=== PATIENT | female | born 1950 | race Caucasian/White ===

== ENCOUNTER 2017-04-03 13:25 | Observation (INO) ==
[2017-04-03] MEDS ORDERED: NITROGLYCERIN SL 0.4 MG TABLET SL PRN (13:54)
[2017-04-03] MEDS ORDERED: ASPIRIN 325 MG TABLET PO STA (13:54)
[2017-04-03] MEDS ORDERED: PANTOPRAZOLE 40 MG VIAL IV STA (13:55)
--- NOTE | 2017-04-03 14:08 | Emergency Department Note ---
Blane Kern Gwan, am scribing for, and in the presence of, Carlos Soto MD 13:59 . Brittany Kern James D, MD, personally performed the services described in this documentation, ascribed by Jordan Arguelles in my presence, and it is both accurate and complete . Arrival - Arrival Chief Complaint: Chest Pain Stated Complaint: shortness of breath ED Nursing Triage Note: Brought in per EMS from home with c/o mid-sternal chest pain onset 1230pm. Describes as pressure. +shortness of breath. +generalized weakness. Denies nausea. Reports had upper GI scope yesterday by Dr Romero. Mode of Arrival: Stretcher Limitations: No Limitations Source: Patient, Old Records Reviewed, RN Notes Reviewed - History of Present Illness HPI Narrative: Patient is a 66 y/o female who presents to the ED via EMS for further evaluation of mid-sternal chest pain with an onset 1230 today. Patient describes her discomfort as pressure and that she also has SOB and generalized weakness. She confirmed that Dr. Romero performed a GI scope on her yesterday and that she had no problems/complaints afterwards. She then noted that 45 minutes PREHEMMER she began to have sxs marko also included the feeling of near syncope. This prompted her to call EMS. She is followed by Dr. Arlen Aguila. Onset (ago): hour(s) Consistency: constant Severity: moderate Date of Last Menstrual Period: PM Allergies/Adverse Reactions: Allergies Allergy/AdvReac Type Severity Reaction Status Date / Time Cefaclor [From Ceclor] Allergy RASH Verified 04/03/17 13:35 fluphenazine [From Prolixin] Allergy Cramping Verified 04/03/17 13:35 of the Muscles Home Medications: Home Medications Medication Instructions Recorded Confirmed Type Fluticasone Propionate 1 spray BOTH NARES BID 03/05/17 04/03/17 History [Fluticasone 50 mcg Nasal [place]] Montelukast Tab [Singulair Tab] 10 mg PO BEDTIME PRN 03/05/17 04/03/17 History Pilocarpine Tab [Salagen] 5 mg PO TID PRN 03/05/17 04/03/17 History cycloSPORINE OPH EMUL [Restasis] 1 drop BOTH EYES DAILY 03/05/17 04/03/17 History Albuterol Neb [Proventil Neb] 2.5 mg RESP TX TID 04/03/17 04/03/17 History Review of System - Review of System 12 point system: reviewed and no additional remarkable complaints except as stated - Review of System Constitutional: Present: as per HPI, weakness. Absent: chills, fever Eyes: Absent: discharge Head/Ears/Nose/Throat: Absent: earache Respiratory: Present: as per HPI, other (sob). Absent: cough Cardiovascular: Present: as per HPI, chest pain Gastrointestinal: Absent: abdominal pain, nausea, vomiting Genitourinary female: Absent: dysuria Musculoskeletal: Absent: arm pain, back pain, leg pain, neck pain Medical,Surgical,& Family Hx - Medical History Respiratory: History of: Asthma Gastrointestinal: History of: GI Problems ("Indigestion") Other: History of: Miscellaneous Medical Problems (DRY MOUTH, ALLERGIES) - Social History Smoking Status: Never smoker Frequency of Alcohol Use: None Type of Drug Use: None Exam Physical Examination: GENERAL: This is a well-nourished, well-developed white female in no apparent distress. VITAL SIGNS: HEENT: Head is normocephalic and atraumatic. Pupils are equally round and reactive to light. Extraocular movement are intact. Oropharynx is benign with moist mucous membranes. NECK: Neck is soft and supple without tenderness. There are no masses. There is no lymphadenopathy. LUNGS: Lungs are clear to auscultation bilaterally. Chest rises symmetrically. There is no chest wall tenderness. CV: Heart is regular rate and rhythm without murmurs, rubs, or gallops. ABDOMEN: Abdomen is soft, non-tender to palpation. There are no abnormal masses palpated. There is no organomegaly. Bowel sounds are present and active. SKIN: Skin is warm and dry. No rash. EXTREMITIES: Patient has full range of motion without tenderness. There is no pedal edema. NEUROLOGIC: Awake, alert, and oriented x4. Cranial nerves II through XII are grossly intact. There are no motorsensory deficits. PSYCHIATRIC: Normal affect. Normal mood. Vital Signs: Vital Signs Temperature 97.2 F L 04/03/17 13:25 Pulse Rate 88 04/03/17 13:25 Respiratory Rate 18 04/03/17 13:25 Blood Pressure 151/89 04/03/17 13:25 O2 Sat by Pulse Oximetry 97 04/03/17 13:25 Results - Labs CBC & BMP: 04/03/17 14:16 04/03/17 14:16 Lab Results: I have reviewed the patients labs Labs: EKG: Normal sinus rhythm with a rate of 87, nonspecific ST-T wave changes, normal axis. - EKG EKG results: interpreted by ERMD - Impressions EKG: Normal sinus rhythm with a rate of 87, nonspecific ST-T wave changes, normal axis. - Diagnostic Findings Procedure: Chest x-ray: image reviewed by me (No cardiomegaly, no pleural effusions.) Disposition Clinical Impression: Chest pain Case discussed with: patient Disposition: Still a Patient Condition: Stable
--- NOTE | 2017-04-03 14:22 | XRay Report ---
Exam: XR chest 2V Date: 04/03/2017 1:55 PM Indication: Chest pain Comparison: 03/05/2017 Technical: PA lateral Findings: No obvious infiltrate or effusion. Small granuloma present in the left mid chest. No obvious infiltrate or effusion. Mediastinum is otherwise intact. Heart is normal in size. Impression: 1. Degenerative spondylosis change thoracic spine 2. No acute cortical pathology with small granuloma left midlung zone PROCEDURE INTERPRETED AT [facility] DEPARTMENT OF RADIOLOGY Final Report Signed by: Dr. Jaleel Padilla
[2017-04-03] MEDS ORDERED: PANTOPRAZOLE 40 MG VIAL IV ONE (14:25)
[2017-04-03 14:26] LABS: Basophils # 0.1 10*3/uL (0.0-0.2); Basophils % 1.1 % (0.0-0.8); Eosinophils # 0.3 10*3/uL (0.0-0.87); Eosinophils % 6.6 % (0.00-10.9); Hematocrit 37.3 VOL% (35.7-47.0); Hemoglobin 12.7 GM/DL (12.0-16.0); Immature Granulocytes % 0.2 %; Immature Granulocytes Absolute 0.01 #; Lymphocytes # 1.7 10*3/uL (1.4-4.0); Mean Corpuscular Hemoglobin 29 PG (27-34); Mean Corpuscular Volume 85.4 FL (87-102); Mean Platelet Volume 9.9 FL (9.6-12.0); Monocytes # 0.3 10*3/uL (0.11-0.8); Monocytes % 7.4 % (1.7-12.7); Neutrophils # 2.2 10*3/uL (1.4-7.4); Neutrophils % 48.7 % (38.7-73.9); Platelet Count 218 T/CUMM (130-400); Red Blood Count 4.37 MC/CUMM (3.8-5.5); Red Cell Distribution Width 12.5 % (9.3-17.3); White Blood Count 4.6 T/CUMM (4-12)
[2017-04-03] MEDS ORDERED: ASPIRIN 325 MG TABLET ONE (14:26)
[2017-04-03] MEDS ORDERED: ACETAMINOPHEN 325 MG TABLET PO ONE (14:36)
[2017-04-03 14:38] LABS: Partial Thromboplastin Time 24.9 SECS (0-40)
[2017-04-03] MEDS ORDERED: ACETAMINOPHEN 325 MG TABLET ONE (14:38)
[2017-04-03 14:47] LABS: Albumin 3.9 G/DL (3.4-5.0); Bilirubin,Total 0.4 MG/DL (0.2-1.0); Calcium 8.8 MG/DL (8.5-10.1); Potassium 3.8 MMOL/L (3.5-5.1)
[2017-04-03] MEDS ORDERED: ONDANSETRON 4 MG/2 ML VIAL IV PRN (17:11)
[2017-04-03] MEDS ORDERED: ACETAMINOPHEN 325 MG TABLET PO PRN (17:11)
[2017-04-03] MEDS ORDERED: ENOXAPARIN 80 MG/0.8 ML SYRINGE SUBCUT STA (17:11)
[2017-04-03] MEDS: SODIUM CHLORIDE 0.9% 1,000 ML IV SCH (17:34)
--- NOTE | 2017-04-03 18:47 | Internal Med History&Physical ---
Assessment and Plan (1) Hypertension Status: Chronic Current Visit: Yes Qualifiers: Hypertension type: essential hypertension Qualified Code(s): I10 - Essential (primary) hypertension (2) Shortness of breath Status: Acute Current Visit: Yes (3) Chest heaviness Status: Acute Current Visit: Yes (4) Chest pain Status: Acute Current Visit: Yes Qualifiers: Chest pain type: unspecified Qualified Code(s): R07.9 - Chest pain, unspecified History of Present Illness Chief complaint: "can't get a breath" History of present illness: Ms. Quarles is a 66 year old female with history of UTI, acid reflux, who presented to ER with shortness of breath. Thought to have asthma but has not been properly diagnosed. Will order pulmonary function testing. She describes a chest heaviness and tightness, shortness of breath. Oxygen sats are so good, held off on ordering breathing treatments. She is concerned about side effects of albuterol and atrovent. Home Medications Medication Instructions Recorded Confirmed Type Fluticasone Propionate 1 spray BOTH NARES BID 03/05/17 04/03/17 History [Fluticasone 50 mcg Nasal [place]] Montelukast Tab [Singulair Tab] 10 mg PO BEDTIME PRN 03/05/17 04/03/17 History Pilocarpine Tab [Salagen] 5 mg PO TID PRN 03/05/17 04/03/17 History cycloSPORINE OPH EMUL [Restasis] 1 drop BOTH EYES DAILY 03/05/17 04/03/17 History Albuterol Neb [Proventil Neb] 2.5 mg RESP TX TID 04/03/17 04/03/17 History Allergies Allergy/AdvReac Type Severity Reaction Status Date / Time Cefaclor [From Ceclor] Allergy RASH Verified 04/03/17 13:35 fluphenazine [From Prolixin] Allergy Cramping Verified 04/03/17 13:35 of the Muscles Medical,Surgical,& Family Hx - Medical History Cardio: History of: Hypertension Respiratory: History of: Asthma (question of) Gastrointestinal: History of: GI Problems ("Indigestion", loose/small frequent bms) Musculoskeletal: History of: Musculoskeletal Problems (osteoarthritis) Other: History of: Miscellaneous Medical Problems (DRY MOUTH, ALLERGIES) - Surgical History HEENT Surgeries: Surgical HX of: Tonsilectomy & Adenoidectomy Abdominal Surgeries: Surgical HX of: Appendectomy Reproductive Surgeries: Surgical HX of;: Section Orthopedic Surgeries: Surgical HX of;: Orthopedic Surgery (right wrist pinned) - Family History Family History: Reports;: Family Cancer (mother - esophageal), Family Heart Disease (father - mi) Denies;: Family Anesthesia Reaction, Family Diabetes, Family Hematology, Family Hypertension, Family Psychiatric Problems, Family Stroke (great grandfather) - Social History Smoking Status: Never smoker Frequency of Alcohol Use: None Type of Drug Use: None Marital Status: Lives With:: Children Functional capacity: independent ambulation - Constitutional Constitutional: Present: weakness - Cardiovascular Cardiovascular: Present: chest pain at rest - Respiratory Respiratory: Present: dyspnea on exertion Exam - Constitutional Vitals: Period Temp Pulse Resp BP Sys/[place] Pulse Ox Last 24 Hr 98.0 F 66-73 15-20 104-123/57-74 97-99 General appearance: no acute distress - Head Head exam: Present: normocephalic - Eye Eye exam: Present: EOMI - Respiratory Respiratory exam: Present: clear to auscultation bilaterally - Cardiovascular Cardiovascular exam: Present: regular rate and rhythm - GI/Abdominal GI/Abdominal exam: Present: normal bowel sounds, soft. Absent: tenderness - Extremities Exam Extremities exam: Absent: edema - Neurological Exam Neurological exam: Present: alert, oriented X3 - Psychiatric Psychiatric exam: Present: normal affect, normal mood - Skin Skin exam: Present: warm, dry Results - Labs CBC & BMP: 04/03/17 14:16 04/03/17 14:16 - EKG EKG shows: sinus rhythm - Diagnostic Findings Procedure: Chest x-ray: report reviewed by me
[2017-04-03] MEDS: DOCUSATE SODIUM 100 MG CAPSULE PO SCH (22:16)
--- NOTE | 2017-04-03 22:30 | EKG Report ---
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
[2017-04-04] MEDS: SODIUM CHLORIDE 0.9% 1,000 ML IV SCH ×2 (01:37→08:56)
[2017-04-04 05:28] LABS: Calcium 8.2 MG/DL (8.5-10.1); Magnesium 2.1 MG/DL (1.8-2.4); Osmolality,Calculated 286.6 MOS/KG (273-304); Potassium 3.7 MMOL/L (3.5-5.1)
--- NOTE | 2017-04-04 06:25 | EKG Report ---
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
--- NOTE | 2017-04-04 06:26 | EKG Report ---
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
--- NOTE | 2017-04-04 07:58 | EKG Report ---
Stationary ECG Study [facility] ER Test Date: 04/03/2017 1:33:11 PM Pat Name: DANA GIRON Department: Room: 294 Gender: F Gta: : 1950 Requested by: Carlos Trimble Order Number: [id number] Reading MD: SALVATORE MORRIS Intervals [place] Rate: 87 P: 59 WV: 153 QRS: 47 QRSD: 85 T: 7 QT: 364 QTc: 408 Interpretive Statements SINUS RHYTHM Electronically Signed On 04-04-17 17:13:45 CDT by SALVATORE MORRIS [id number]
[2017-04-04] MEDS: DOCUSATE SODIUM 100 MG CAPSULE PO SCH (08:55)
[2017-04-04] MEDS ORDERED: PANTOPRAZOLE 40 MG TABLET PO SCH (09:00)
--- NOTE | 2017-04-04 13:04 | Cardiology Consult Note ---
Aden Kern Vanessa RN, am scribing for, and in the presence of, Dada Bergeron MD 13:04. Assessment and Plan - Time spent with patient Time spent with patient: Greater than 30 minutes (due to assessment, planning, documentation, and medication review) (1) Chest pain Status: Acute Current Visit: Yes Qualifiers: Chest pain type: unspecified Qualified Code(s): R07.9 - Chest pain, unspecified (2) Shortness of breath Status: Acute Current Visit: Yes (3) Hypertension Status: Chronic Current Visit: Yes Qualifiers: Hypertension type: essential hypertension Qualified Code(s): I10 - Essential (primary) hypertension History of Present Illness - Data of Consult Patient: new to practice Consult date: 04/04/17 Requesting Physician: Agustin Ornelas Primary care physician: Agustin Ornelas - Consult Narrative Reason for consult: CP, SOB History of present illness: 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 ADRIANA BERGERON (NEW) PCP: DR. AGUSTIN ORNELAS CARDIOLOGY CONSULT NOTE: CHEST PAIN, SHORTNESS OF BREATH Ms. Quarles is a 66 year old white female who was never had formal cardiology evaluation. Past medical history includes seasonal allergies and asthma, indigestion/reflux, UTI. Family history: Father had sudden at age 59, and was felt to have suffered an [place]. Mother passed at age 64 related to complications of esophageal cancer; history of ASCVD. She presented to [place] 's ER on the afternoon of 04/03 with complaints of chest pressure, shortness of breath, generalized weakness. She reportedly had an outpatient upper GI endoscopy with esophageal dilation by Dr. Romero on 04/02 and was without complaint after. Yesterday afternoon, she had some chest pressure/epigastric discomfort, felt that she was near syncopal, and she called EMS. EKG revealed sinus rhythm without acute ischemic finding. Chest x-ray negative for cardiomegaly, infiltrate, effusion, or other cardiopulmonary process. Troponin level negative. Patient was admitted to telemetry per internal medicine for further observation and treatment. Cardiology has been consulted for evaluation. Patient seen and examined. She is sitting up in chair without acute distress noted. She has not experienced further discomfort, shortness of breath, dizziness, presyncope, or other symptoms since admission. When speaking with patient regarding chest and epigastric discomfort, she describes substernal "pressure" and epigastric "pressure". Patient describes this pressure as a "burp or belch that would not come up", and then she noticed that she was unable to take in a deep breath due to that feeling and then she felt that she was short of breath. No associated diaphoresis, nausea, vomiting. Admitted that this pressure made her feel weak and she did feel for a few minutes that she was going to pass out. She did not experience syncope. No recent or current exertional dyspnea, chest pain or discomfort, orthopnea, palpitations, PND. No aggravating or alleviating factors for her complaint. Reports she did receive sublingual nitroglycerin yesterday afternoon after arrival to the emergency room, and she feels that it helped "a little bit after a while". No recent cough, fever, chills. Patient reports she has experienced loose stools recently and has had some discomfort in her umbilical region. No hematuria, hematemesis, melena. Telemetry monitoring has revealed continuing sinus rhythm without disturbance, ectopy, or acute change. EKG this morning is nonspecific ST changes. Serial troponin levels have remained normal. Lab work is overall unremarkable. Electrolytes noted to be within acceptable range. Blood pressure 120/70. At this time, there are no clinical findings to suggest ACS. Patient can follow -up at [facility] clinic for outpatient stress testing and follow-up with Dr. Bergeron afterward. There are no features of the patient's symptoms that suggest angina as an etiology. Her evaluation is negative for evidence of ACS. I agree that this patient will be discharged to follow-up with us as an outpatient for noninvasive evaluation. Thank you very much for this consultation. CC: Agustin Ornelas, DO - Home Medications and Allergies Home Medications: Home Medications Medication Instructions Recorded Confirmed Type Fluticasone Propionate 1 spray BOTH NARES BID 03/05/17 04/03/17 History [Fluticasone 50 mcg Nasal [place]] Montelukast Tab [Singulair Tab] 10 mg PO BEDTIME PRN 03/05/17 04/03/17 History Piloc[place]ine Tab [Salagen] 5 mg PO TID PRN 03/05/17 04/03/17 History cycloSPORINE OPH EMUL [Restasis] 1 drop BOTH EYES DAILY 03/05/17 04/03/17 History Albuterol Neb [Proventil Neb] 2.5 mg RESP TX TID 04/03/17 04/03/17 History Allergies/Adverse Reactions: Allergies Allergy/AdvReac Type Severity Reaction Status Date / Time Cefaclor [From Ceclor] Allergy RASH Verified 04/03/17 13:35 fluphenazine [From Prolixin] Allergy Cramping Verified 04/03/17 13:35 of the Muscles - Constitutional Constitutional: Present: as per HPI - EENT Eyes: Present: as per HPI Nose, mouth and throat: Present: as per HPI - Cardiovascular Cardiovascular: Present: as per HPI - Respiratory Respiratory: Present: as per HPI - Gastrointestinal Gastrointestinal: Present: as per HPI - Genitourinary Genitourinary: Present: as per HPI - Musculoskeletal Musculoskeletal: Present: as per HPI - Neurological Neurological: Present: as per HPI - Psychiatric Psychiatric: Present: as per HPI - Endocrine Endocrine: Present: as per HPI - Hematologic/Lymphatic Hematologic/Lymphatic: Present: as per HPI Medical,Surgical,& Family Hx - Medical History Cardio: History of: Hypertension No history of: Cardiac Dysrhythmia, CHF, CAD, [place], PVD Psychological: No history of: Anxiety Disorders, Depression Neurology: No history of: Dementia, TIA Endocrine: No history of: Diabetes Mellitus (IDDM), Thyroid Disorder Respiratory: History of: Asthma (question of) No history of: COPD, Obstructive Sleep Apnea Genitourinary: History of: Recurring Urinary Tract Infections Gastrointestinal: History of: GERD, GI Problems (possible IBS) No history of: Gastrointestinal Bleed Musculoskeletal: History of: Musculoskeletal Problems (osteoarthritis) Hematology: No history of: Anemia Other: History of: Miscellaneous Medical Problems No history of: Cancer - Surgical History Cardiac Surgeries: Patient Denies: Cardiac Catheterization, Carotid Endarterectomy, Internal Defibrillator HEENT Surgeries: Surgical HX of: Tonsilectomy & Adenoidectomy Abdominal Surgeries: Surgical HX of: Appendectomy Reproductive Surgeries: Surgical HX of;: Section Orthopedic Surgeries: Surgical HX of;: Orthopedic Surgery (right wrist pinned) - Family History Family History: Reports;: Family Cancer (mother - esophageal), Family Heart Disease (father - mi) Denies;: Family Anesthesia Reaction, Family Diabetes, Family Hematology, Family Hypertension, Family Psychiatric Problems, Family Stroke (great grandfather) - Social History Smoking Status: Never smoker Frequency of Alcohol Use: None Type of Drug Use: None Physical Examination Vital Signs Temp Pulse Resp BP Pulse Ox 97.2 F L 88 18 155/89 97 04/03/17 13:25 04/03/17 13:25 04/03/17 13:25 04/03/17 13:25 04/03/17 13:25 General: Present: Appears Well, No Apparent Distress, Other (overweight) HEENT: Present: PERRL, Normocephaly, Mucus Membranes Moist. Absent: Jaundice, Oral Lesions Neck: Present: Supple Neck, Midline Trachea, No JVD/HJR, No Masses, No Bruit Cardiac: Present: Reg Rate and Rhythm, No Murmur Lungs: Present: Clear Ascult./Percussion, No Wheeze, Rales, Rhonchi. Absent: Oxygen Neuro: Present: Grossly Intact. Absent: Numbness, Tingling, Weakness, Resting Tremor, Essential Tremor Abdomen: Present: Soft, Active Bowel Sounds. Absent: Ascites, Tender, Firm Skin: Present: Clear. Absent: Rash, Suspicious Lesions Musculoskeletal: Present: No Fluid Collection, Normal Range of Motion Extremities: Present: No Clubbing, No Cyanosis, Normal Upper Extr. Pulses (3+ bilateral), Normal Lower Extr. Pulses (2+ bilateral), Edema (Trace pretibial), Capillary Refill (Normal) Result/EKG - Labs CBC & BMP: 04/03/17 14:16 04/04/17 04:30 Lab Results: I have reviewed the past 24 hour labs Labs: Laboratory Results - last 24 hr 04/03/17 04/03/17 04/04/17 17:43 21:36 04:30 Sodium 146 H Potassium 3.7 Chloride 110 H Carbon Dioxide 27 Anion Gap 12.7 BUN 7 Creatinine 0.60 GFR Calculation 93 BUN/Creatinine Ratio 11.00 Glucose 89 Calculated Osmolality 286.6 Calcium 8.2 L Magnesium 2.1 Troponin I < 0.015 < 0.015 - Diagnostic Findings Procedure: Chest x-ray: image reviewed by me, report reviewed by me - EKG EKG results: interpreted by me, no acute changes EKG shows: sinus rhythm Specialty Discharge - Follow Up or Referrals Follow up with: Dada Bergeron MD [Physician] - 1 Week (Please set up for outpatient stress testing at [facility] clinic and then follow up appointment with Dr. Bergeron after stress test.) IRubio Wesley, MD, personally performed the services described in this documentation, ascribed by Aracelis Samaniego RN in my presence, and it is both accurate and complete [id number] .
[2017-04-04] MEDS ORDERED: cycloSPORINE OPH EMUL 1 VIAL BOTH EYES SCH (14:08)
[2017-04-04 15:37] VITALS: BP 127/76
--- NOTE | 2017-04-04 17:27 | Discharge Summary ---
Hospital Course - Hospital Course Hospital Course: Ms. Quarles is a 66 year old female with history of UTI, acid reflux, who presented to ER with shortness of breath. Thought to have asthma but has not been diagnosed. Will order pulmonary function testing. She describes a chest heaviness and tightness, shortness of breath. Oxygen sats are so good, held off on ordering breathing treatments. She is concerned about side effects of albuterol and atrovent. She is feeling better after EGD a couple days ago outpatient with dilatation per Dr. Romero. Pulmonary function testing report pending. Will discharge her to home, and she will follow up with cardiology for cardiac stress testing and ECHO. Diagnosis - Discharge Diagnosis (1) Hypertension Status: Chronic (2) Shortness of breath Status: Resolved (3) Chest heaviness Status: Resolved (4) Chest pain Status: Resolved (5) Acid reflux Status: Chronic (6) Esophageal stricture Status: Chronic Specialty Discharge - Follow Up or Referrals Follow up with: Dada Bergeron MD [Physician] - 1 Week (Please set up for outpatient stress testing at [facility] and then follow up appointment with Dr. Bergeron after stress test.) Discharge Plan - Discharge Data Disposition: Disch To Home/Self Care Condition at Discharge: Stable Discharge Diet: low fat, low cholesterol Activity: increase activity as tolerated - Discharge Medications New Acetaminophen Tab [Tylenol Tab] 650 mg PO Q6H PRN #0 tablet PRN Reason: Fever > 100.4 Or Headache Docusate Sodium Cap [Colace Cap] 100 mg PO BID capsule Pantoprazole Tab [Protonix Tab] 40 mg PO DAILY #30 tablet Continue Fluticasone Propionate [Fluticasone 50 mcg Nasal Chloe] 1 spray BOTH NARES BID [place] Tab [Salagen] 5 mg PO TID PRN PRN Reason: Dry Mouth Montelukast Tab [Singulair Tab] 10 mg PO BEDTIME PRN PRN Reason: Allergy Symptoms cycloSPORINE OPH EMUL [Restasis] 1 drop BOTH EYES DAILY Changed Albuterol Neb [Proventil Neb] 2.5 mg RESP TX TID PRN #90 PRN Reason: Dyspnea - Follow Up or Referral Follow Up: Dada Bergeron MD [Physician] - 1 Week (Please set up for outpatient stress testing at [facility] and then follow up appointment with Dr. Bergeron after stress test.) Aura Augila DO [Physician] - - Forms/Instructions Instructions: Chest Pain (DC), Chronic Hypertension (DC), Dyspnea (GEN) Exam - Constitutional Vitals: Period Temp Pulse Resp BP Sys/Clifton Pulse Ox Last 24 Hr 97.5 F-98.9 F 63-69 16-18 110-127/68-77 95-97 General appearance: no acute distress - Respiratory Respiratory exam: Present: clear to auscultation bilaterally - Cardiovascular Cardiovascular exam: Present: regular rate and rhythm - GI/Abdominal GI/Abdominal exam: Present: soft. Absent: tenderness - Extremities Exam Extremities exam: Absent: edema - Neurological Exam Neurological exam: Present: alert - Psychiatric Psychiatric exam: Present: normal mood - Skin Skin exam: Present: warm, dry Discharge Results Procedures and tests throughout hospitalization: Pending Orders 04/05/17 04:00 BMP w/ Mg [Basic Metabolic Panel w/Mg] IN AM CBC [Comp Blood Count Auto Diff] IN AM 04/06/17 04:00 BMP w/ Mg [Basic Metabolic Panel w/Mg] IN AM CBC [Comp Blood Count Auto Diff] IN AM 04/07/17 04:00 BMP w/ Mg [Basic Metabolic Panel w/Mg] IN AM CBC [Comp Blood Count Auto Diff] IN AM Labs on day of discharge: Labs from last 24 hours 04/04/17 04/03/17 04/03/17 04:30 21:36 17:43 Sodium 146 H Potassium 3.7 Chloride 110 H Carbon Dioxide 27 Anion Gap 12.7 BUN 7 Creatinine 0.60 GFR Calculation 93 BUN/Creatinine Ratio 11.00 Glucose 89 Calculated Osmolality 286.6 Calcium 8.2 L Magnesium 2.1 Troponin I < 0.015 < 0.015 DS: Provider Date of admission: 04/03/17 15:34 Primary care physician: . No PCP Attending physician on admission: Aura Aguila DO Consults: 04/03/17 17:11 Consult to Case Mgmt/Social Srvs [CONS] Routine Reason for Case Mgmt/Social Srvs: Discharge Planning Consult to Physician [CONS] Routine Comment: chest pain Consulting Provider: Dada Bergeron Consult to Specialist Group: Cardiology Person Notified: Julita at [facility] Date Notified: 04/03/17 Time Notified: 17:21 Consult Notification Comment: SPOKE WITH SABRA AT 0735 AT [facility] ON 04/04/17 Discharging clinician: Aura Aguila DO Expected date of discharge: 04/04/17
[2017-04-05] MEDS ORDERED: cycloSPORINE OPH EMUL 1 VIAL BOTH EYES SCH (09:00)
== END 2017-04-04 18:22 | disposition home or self-care (01) ==
LOC: EDUNIT# → EDBD → N.EDINP 13:25 → N.ED 13:25 → N.TELEN 17:08
PROVIDERS: ADMIT Internal Medicine; ATTEND Internal Medicine